=== PATIENT | female | born 1980 | race Caucasian/White ===

== ENCOUNTER 2017-03-13 13:38 | Emergency (ER) | payer BC, MEDICAID ==
[2017-03-13 14:14] LABS: Urine Appearance Slightly Cloudy; Urine Bilirubin Negative (NEGATIVE); Urine Blood 250 /ul (NEGATIVE); Urine Color Yellow; Urine Ketone 5 mg/dL (NEGATIVE); Urine Nitrite Negative (NEGATIVE); Urine Protein 15 mg/dL (NEGATIVE); Urine Specific Gravity 1.025 SP.GR. (1.005-1.010); Urine Urobilinogen Normal (NORMAL)
[2017-03-13 14:16] LABS: Urine Bacteria None Seen; Urine WBC 0-5 /hpf (0-5)
[2017-03-13 14:17] LABS: Hematocrit 38.1 % (37.0-47.0); Hemoglobin 12.9 gm/dL (12.5-16.0); Mean Corpuscular Hemoglobin 29.1 pg (27-31); Mean Corpuscular Hgb Conc 33.9 g/dl (32-36); Mean Platelet Volume 9.7 fl (6.0-9.5); Neutrophil # 5.3 K/mm3 (1.3-6.0); Neutrophil % 58.6 % (42-75.0); Platelet Count 318 K/mm3 (150-450); Red Blood Count 4.43 M/mm3 (4.2-5.4); Red Cell Distribution Width 12.1 % (11.5-14.0)
[2017-03-13 14:31] LABS: Albumin * 3.8 gm/dl (3.4-5.0); BUN/Creatinine Ratio 14.9 (9.0-21.6); Bilirubin, Total 0.3 mg/dL (0.0-1.1); Calcium * 8.2 mg/dL (7.9-10.9); Carbon Dioxide 29.2 mmol/L (24-32.6); Potassium 3.2 mmol/L (3.4-4.6); Total Protein 7.5 gm/dL (6.2-8.2)
[2017-03-13 15:32] VITALS: BP 114/69
--- NOTE | 2017-03-13 15:32 | ERNOTE ---
Abdominal HPI - Narrative Date of Service: 03/13/17 - General Chief Complaint: Abdominal Pain Time Seen by Provider: 03/13/17 13:57 Source: patient Exam Limitations: no limitations - Immun/Allergies/Home Medications Immunizatons: IMMUNIZATION HX Immunizations Up to Date Yes History of Influenza Vaccine Yes Hx Pneumococcal Vaccination Yes Allergies/Adverse Reactions: Allergies No Known Allergies Allergy (Unverified 03/13/17 13:52) Home Medications: HOME MEDICATIONS Acetaminophen [Tylenol] 650 mg PO Q4H PRN 03/13/17 [Last Taken Unknown] diphenhydrAMINE HCL [Benadryl] 25 mg PO Q6H PRN 03/13/17 [Last Taken Unknown] - History of Present Illness Narrative: patient had acute onset of acute abdominal pain two hours before arrival pain has no resolved Timing: resolved prior to arrival Quality: moderate, fullness, sharpness Activities at Onset: none Modifying Factors - (Improves): Present: other - noothing Modifying Factors - (Worsens): Present: other - nothing Associated Symptoms: Present: denies symptoms Prior Abdominal Problems: Present: none Review of Systems - Review of Systems Constitutional: Present: See HPI EYE: Present: no symptoms reported ENT: Present: no symptoms reported Respiratory: Present: no symptoms reported Cardiology: Present: no symptoms reported Gastrointestinal/Abdominal: Present: no symptoms reported Genitourinary: Present: no symptoms reported Musculoskeletal: Present: no symptoms reported Skin: Present: no symptoms reported Neurological: Present: no symptoms reported Endocrine: Present: no symptoms reported Hematologic/Lymphatic: Present: no symptoms reported Psych: Present: no symptoms reported - Patient's Past Medical History Patient History - Medical: No pertinent hx Patient History - Cardiac/Respiratory: No pertinent hx, Other Patient History - Cancer: No Hx of Cancer Patient History - Surgical Procedures: Other LMP (females 10-50): now - Family History Family History:: no untoward family reactions to anesthesia, no family history of clotting disorders - Social History Living Situations: home Abuse History: No History of abuse Psych History: No pertinent hx Smoking Status: Current every day smoker Alcohol Use: none Drug Use: none - Immunizations Immunizations Up to Date: Yes Hx Pneumococcal Vaccination: Yes History of Influenza Vaccine: Yes Physical Exam - Physical Exam General Appearance: Present: no apparent distress Head Exam: Present: normal inspection, no evidence of injury Eye Exam: Normal inspection: bilateral, PERRL: bilateral, EOMI: bilateral Neck: Present: normal inspection Respiratory: Present: no respiratory distress, normal breath sounds, no accessory muscle use, chest nontender Cardiovascular/Chest: Present: regular rate, rhythm, no murmur, normal peripheral pulses Gastrointestinal/Abdominal: Present: normal bowel sounds, nontender, nondistended, soft, no organomegaly Back Exam: Present: normal inspection, normal range of motion, no CVA tenderness , no vertebral tenderness Extremity Exam: Present: normal inspection, non-tender, normal range of motion, no edema Neurological Exam: Present: alert, oriented, normal mood/affect, no motor/ sensory deficits Skin Exam: Present: normal color, warm/dry Lymphatic Exam: Present: no adenopathy ED Progress - Vital Signs Vital Signs: Vital Signs 03/13/17 13:47 Temperature 36.5 C Pulse Rate 77 Respiratory 15 Rate Blood Pressure 115/70 O2 Sat by Pulse 100 Oximetry - Progress/Reassessment Chief Complaint: Abdominal Pain Departure - Departure Clinical Impression: Abdominal pain Disposition: Home self-care Condition: Fair Instructions: Constipation, Adult, [id number]
== END 2017-03-13 15:32 | disposition home or self-care (01) ==
LOC: ER 13:38
DX: R10.9 Unspecified abdominal pain (principal); F17.200 Nicotine dependence, unspecified, uncomplicated